=== PATIENT | female | born 1995 | race African-American/Black ===

== ENCOUNTER 2023-02-28 15:10 | Emergency (ER) | payer MEDICAID ==
[~2023-02-28] VITALS: Ht 182.9 cm; Wt 90.0 kg
[2023-02-28] MEDS ORDERED: KETOROLAC 60MG/2ML VIAL IM ONE (16:00)
[2023-02-28 19:17] VITALS: BP 146/84
[2023-02-28] MEDS ORDERED: CEPH500C2 MT (19:39)
[2023-02-28] MEDS ORDERED: IBUP-2029 MT (19:39)
== END 2023-02-28 19:13 | disposition left against medical advice (07) ==
LOC: ER 15:14
DX: S92.492A Other fracture of left great toe, initial encounter for closed fracture (principal); V03.19XA Pedestrian with other conveyance injured in collision with car, pick-up truck or van in traffic accident, initial encounter; Y93.89 Activity, other specified; Y92.89 Other specified places as the place of occurrence of the external cause; Y99.8 Other external cause status
CPT/HCPCS: 73630; 96372; 99283; J1885; Z7610